=== PATIENT | female | born 1945 | race Caucasian/White ===

== ENCOUNTER 2017-05-04 09:25 | Emergency (ER) | payer MEDICARE ==
[~2017-05-04] VITALS: Ht 157.5 cm; Wt 57.0 kg
[~2017-05-04 09:25] MED LIST: ALEN10TA6 PO; ALPR1TAB5 PO; ALPR1TAB6 PO; CLOB15CR19 VG; CYCL1DRO EACHEYE; HYDR28.311 RC; METO25TA35 PO; OMEP-110 PO; OMEP10CA4 PO; OXYC-229 PO; OXYC1TAB9 PO; OXYC20TA42 PO; Oxygen NAS; PROM25TA10 PO; TRAZ50TA18 PO
[2017-05-04 09:29] VITALS: BP 143/76
[2017-05-04] MEDS ORDERED: maalox/diphenh/lido/sucralfate 5 ML PO PRN (10:30)
[2017-05-04] MEDS ORDERED: HYDR-3144 PO (11:24)
== END 2017-05-04 11:57 | disposition home or self-care (01) ==
LOC: ED 10:21
DX: J37.0 Chronic laryngitis (principal); K12.0 Recurrent oral aphthae; Z88.1 Allergy status to other antibiotic agents; Z88.8 Allergy status to other drugs, medicaments and biological substances
CPT/HCPCS: 70360; 71020; 99284; J7512

== ENCOUNTER → 2017-08-13 | Outpatient (CLI) | payer MEDICARE, OTHER ==
[~2017-08-13] MED LIST changes: +ALPR0.5T6 PO; +CIPR500T3 PO; +HYDR-3245 PO; +MAGN400T36 PO; +METH500T7 PO; -OXYC-229 PO; +OXYC-307 PO; +OXYC15TA PO; +TIZA4TAB9 PO; +VALA500T PO; +ZOLP10TA5 PO
[2017-08-13 10:19] LABS: BLOOD UREA NITROGEN 15 mg/dL (7-18); HEMATOCRIT 43.1 % (34.6-47.8); HEMOGLOBIN 14.9 g/dL (11.7-16.4); WHITE BLOOD COUNT 9.3 x10^3/uL (3.4-10)
== END | disposition home or self-care (01) ==
LOC: STAR 08:19
PROVIDERS: ATTEND Neurological Surgery
DX: Z01.818 Encounter for other preprocedural examination (principal); M41.84 Other forms of scoliosis, thoracic region; M51.16 Intervertebral disc disorders with radiculopathy, lumbar region; I70.0 Atherosclerosis of aorta; R79.1 Abnormal coagulation profile; Z85.9 Personal history of malignant neoplasm, unspecified
CPT/HCPCS: 36415; 71020; 80048; 85025; 85610; 85730; 93005

== ENCOUNTER 2017-08-17 11:48 | Inpatient (IN) | payer MEDICARE, OTHER ==
[2017-08-13 09:05] VITALS: BP 143/88
[~2017-08-17] VITALS: Ht 160 cm; Wt 60.8 kg
[~2017-08-17 11:48] MED LIST changes: +BACITRACIN 50,000 UNIT ONE; +BUPIVACAINE/PF 0.5% ONE; -MAGN400T36 PO; -METH500T7 PO; -OXYC15TA PO; +THROMBIN 5,000 UNIT VIAL TP ONE; -TIZA4TAB9 PO
[2017-08-17] MEDS ORDERED: LIDOCAINE 1%, 2ML ONE (12:32)
[2017-08-17] MEDS ORDERED: LACTATED RINGERS 1,000 ML IV SCH (12:57)
[2017-08-17] MEDS ORDERED: FENTANYL PF 100 MCG/2ML ONE ×2 (13:47→15:16)
[2017-08-17] MEDS ORDERED: HYDROmorphone 1 MG/ML, 1ML ONE (13:47)
[2017-08-17] MEDS ORDERED: ROCURONIUM 10 MG/ML ONE (13:57)
[2017-08-17] MEDS ORDERED: DEXAMETHASONE 4 MG/ML, 5ML ONE (13:57)
[2017-08-17] MEDS ORDERED: LIDOCAINE PF 2%, 5ML ONE (13:57)
[2017-08-17] MEDS ORDERED: NEOSTIGMINE 1 MG/ML, 10ML ONE (13:57)
[2017-08-17] MEDS ORDERED: ONDANSETRON 2MG/ML, 2ML ONE (13:57)
[2017-08-17] MEDS ORDERED: GLYCOPYRROLATE 0.2MG/1ML, 5ML ONE (13:57)
[2017-08-17] MEDS ORDERED: PROPOFOL 10 MG/ML, 20ML ONE (13:57)
[2017-08-17] MEDS ORDERED: SUCCINYLCHOLINE 20 MG/ML, 10ML ONE (13:57)
[2017-08-17] MEDS ORDERED: OXYcodone 5 MG/5 ML ORAL.SOL UDC PO PRN (14:30)
[2017-08-17] MEDS ORDERED: ACETAMINOPHEN 325 MG TABLET PO PRN (14:30)
[2017-08-17] MEDS ORDERED: hydrALAzine 20 MG/ML, 1ML IV PRN (14:30)
[2017-08-17] MEDS ORDERED: LABETALOL 5MG/ML, 20ML IV PRN (14:30)
[2017-08-17] MEDS ORDERED: ONDANSETRON 2MG/ML, 2ML IVPush PRN (14:30)
[2017-08-17] MEDS ORDERED: ACETAMINOPHEN 650 MG/20.3 ML UDC ONE (15:15)
[2017-08-17] MEDS ORDERED: OXYcodone 5 MG/5 ML ORAL.SOL UDC ONE (15:16)
[2017-08-17] MEDS: FENTANYL PF 100 MCG/2ML IV PRN ×2 (15:18→15:25)
[2017-08-17] MEDS ORDERED: HYDROmorphone 2 MG/ML, 1ML ONE (15:28)
[2017-08-17] MEDS: HYDROmorphone 1 MG/ML, 1ML IV PRN ×4 (15:30→16:00)
[2017-08-17] MEDS ORDERED: GLYCOPYRROLATE 0.4 MG/2 ML, 2ML ONE (15:57)
[2017-08-17] MEDS ORDERED: GLYCOPYRROLATE 0.2MG/1ML, 5ML IVPush ONE ×2 (16:00→16:30)
[2017-08-17 16:45] VITALS: BP 154/75
[2017-08-17] MEDS ORDERED: DIPHENHYDRAMINE 50 MG/ML, 1ML IVPush PRN (17:00)
[2017-08-17] MEDS ORDERED: ALPRazolam 1MG TABLET PO PRN (17:00)
[2017-08-17] MEDS ORDERED: PROMETHAZINE 25MG TABLET PO PRN (17:00)
[2017-08-17] MEDS ORDERED: OMEPRAZOLE 20 MG CAPSULE.DR PO PRN (17:00)
[2017-08-17] MEDS ORDERED: DIPHENHYDRAMINE 50 MG/ML, 1ML IM PRN (17:00)
[2017-08-17] MEDS ORDERED: BISACODYL 10 MG SUPP PR PRN (17:00)
[2017-08-17] MEDS ORDERED: PROMETHAZINE 25 MG/ML, 1ML IM PRN (17:00)
[2017-08-17] MEDS ORDERED: HYDROmorphone 2MG TABLET PO PRN (17:00)
[2017-08-17] MEDS ORDERED: MAGNESIUM HYDROXIDE 8%, 30ML UDC PO PRN (17:00)
[2017-08-17] MEDS ORDERED: HYDROCORTISONE CRM 0.025, 30GM RC PRN (17:00)
[2017-08-17] MEDS ORDERED: DIPHENHYDRAMINE 50 MG CAPSULE PO PRN (17:00)
[2017-08-17] MEDS ORDERED: HYDROmorphone 2 MG/ML, 1ML IM PRN (17:00)
[2017-08-17] MEDS ORDERED: OXYcodone/APAP 5/325MG TABLET PO PRN (17:30)
[2017-08-17] MEDS ORDERED: HYDROcodone/APAP 5/325 TABLET PO PRN (17:30)
[2017-08-17 19:48] VITALS: BP 146/60
[2017-08-17] MEDS: NS + 20MEQ KCL 1,000 ML IV SCH (20:12)
[2017-08-17] MEDS: RESTASIS HOMEOPHTH SCH (20:53)
[2017-08-17] MEDS: ZOLPIDEM 10MG TABLET PO SCH (22:20)
[2017-08-17] MEDS: CEFAZOLIN PMX 1GM/50ML 50 ML IVPB SCH (22:20)
[2017-08-18 00:07] VITALS: BP 121/66
[2017-08-18 03:34] VITALS: BP 124/69
[2017-08-18] MEDS: METOPROLOL TARTRATE 25 MG TABLET PO SCH (05:52)
[2017-08-18] MEDS ORDERED: METOPROLOL SUCCINATE 25 MG TAB.ER.24H PO SCH (06:00)
[2017-08-18] MEDS: CEFAZOLIN PMX 1GM/50ML 50 ML IVPB SCH (06:33)
[2017-08-18 06:45] VITALS: BP 128/72
[2017-08-18] MEDS: NS + 20MEQ KCL 1,000 ML IV SCH ×2 (08:30→21:00)
[2017-08-18] MEDS ORDERED: OXYC15TA PO (08:43)
[2017-08-18] MEDS ORDERED: DIAZEPAM INTENSOL 5 MG/ML PO PRN (09:00)
[2017-08-18] MEDS ORDERED: DIAZEPAM ELIXIR 1 MG/ML PO PRN (09:00)
[2017-08-18] MEDS: RESTASIS HOMEOPHTH SCH ×2 (09:00→21:00)
[2017-08-18] MEDS ORDERED: CYCLOBENZAPRINE 10 MG TABLET PO SCH (09:00)
[2017-08-18] MEDS: SENNA/DOCUSATE TABLET PO SCH (09:00)
[2017-08-18] MEDS: OXYcodone IR 5MG TABLET PO PRN ×2 (09:05→17:29)
[2017-08-18] MEDS: ONDANSETRON 2MG/ML, 2ML IV PRN ×2 (10:44→21:03)
[2017-08-18] MEDS: TIZANIDINE 4MG TABLET PO PRN ×2 (11:09→20:08)
[2017-08-18 13:38] VITALS: BP 96/51
[2017-08-18 19:30] VITALS: BP 110/65
[2017-08-18] MEDS: ZOLPIDEM 10MG TABLET PO SCH (21:03)
[2017-08-19] MEDS: OXYcodone IR 5MG TABLET PO PRN ×4 (00:23→16:37)
[2017-08-19 01:54] VITALS: BP 98/54
[2017-08-19] MEDS: TIZANIDINE 4MG TABLET PO PRN ×2 (04:18→14:33)
[2017-08-19] MEDS: METOPROLOL TARTRATE 25 MG TABLET PO SCH ×2 (06:00→06:15)
[2017-08-19 07:10] VITALS: BP 118/53
[2017-08-19] MEDS: SENNA/DOCUSATE TABLET PO SCH (07:23)
[2017-08-19] MEDS: RESTASIS HOMEOPHTH SCH (07:23)
[2017-08-19] MEDS: NS + 20MEQ KCL 1,000 ML IV SCH (07:24)
[2017-08-19] MEDS ORDERED: TIZA4TAB9 PO (08:20)
[2017-08-19 16:04] VITALS: BP 98/60
[2017-08-19 18:36] VITALS: BP 92/57
[2017-08-20] MEDS ORDERED: SENNA/DOCUSATE TABLET PO SCH (09:00)
== END 2017-08-19 19:35 | disposition home or self-care (01) | DRG 517 ==
LOC: OUT 11:48 → 4NOR 16:43 → ORIP 16:45 → OUT 17:10 → 4NOR 17:33
PROVIDERS: ADMIT Neurological Surgery; ATTEND Neurological Surgery
PROC: 01NB0ZZ Release Lumbar Nerve, Open Approach (ICD-10-PCS; principal; 2017-08-17 15:00)
DX: M51.16 Intervertebral disc disorders with radiculopathy, lumbar region (principal); M47.9 Spondylosis, unspecified; Z87.891 Personal history of nicotine dependence; Z88.8 Allergy status to other drugs, medicaments and biological substances
CPT/HCPCS: 72100; 76000; J0690; J1100; J1170; J2270; J2405; J2704; J2710; J3010; J3480; J3490; J0330

== ENCOUNTER 2017-08-22 18:50 | Inpatient (IN) | payer MEDICARE, OTHER ==
[~2017-08-22] VITALS: Ht 154.9 cm; Wt 63.9 kg
[~2017-08-22 18:50] MED LIST changes: -BACITRACIN 50,000 UNIT ONE; -BUPIVACAINE/PF 0.5% ONE; +OXYC15TA PO; -THROMBIN 5,000 UNIT VIAL TP ONE; +TIZA4TAB9 PO
[2017-08-22] MEDS ORDERED: SODIUM CHLORIDE 0.9% 1,000ML IVBOLUS ONE ×2 (20:00→22:30)
[2017-08-22] MEDS ORDERED: SODIUM CHLORIDE FLUSH 10ML SYR IVF ONE (20:00)
[2017-08-22 20:07] LABS: HEMATOCRIT 42.2 % (34.6-47.8); WHITE BLOOD COUNT 14.2 x10^3/uL (3.4-10)
[2017-08-22 20:16] LABS: BLOOD UREA NITROGEN 12 mg/dL (7-18)
[2017-08-22] MEDS ORDERED: CEFTRIAXONE PMX 1GM/50ML 50 ML IVPB ONE (20:30)
[2017-08-22] MEDS ORDERED: CEFTRIAXONE PMX 1GM/50ML 50 ML ONE (20:51)
[2017-08-22] MEDS ORDERED: ONDANSETRON 2MG/ML, 2ML ONE (21:39)
[2017-08-22] MEDS ORDERED: HYDROmorphone 1 MG/ML, 1ML IVPush PRN ×2 (22:00→23:00)
[2017-08-22] MEDS ORDERED: ONDANSETRON 2MG/ML, 2ML IVPush ONE (22:00)
[2017-08-22] MEDS ORDERED: MAGN400T36 PO (22:24)
[2017-08-22] MEDS ORDERED: METH500T7 PO (22:25)
[2017-08-22] MEDS ORDERED: SODIUM CHLORIDE FLUSH 10ML SYR IVF PRN (23:00)
[2017-08-22] MEDS ORDERED: GADOBUTROL 7.5 MMOL/7.5 ML PFS ONE (23:35)
[2017-08-23] MEDS ORDERED: TIZANIDINE 4MG TABLET PO PRN
[2017-08-23] MEDS ORDERED: HYDROCORTISONE CRM 0.025, 30GM RC PRN
[2017-08-23] MEDS ORDERED: OXYCODONE HCL 15 MG PO SCH
[2017-08-23] MEDS ORDERED: OMEPRAZOLE 20 MG CAPSULE.DR PO PRN
[2017-08-23] MEDS: SODIUM CHLORIDE 0.9% 1,000 ML IV SCH ×3 (00:04→23:13)
[2017-08-23] MEDS ORDERED: morphine SULFATE 10 MG/ML, 1ML IVPush PRN ×2 (00:30→22:30)
[2017-08-23] MEDS ORDERED: POLYETHYLENE GLYCOL 17 GM PACKET PO PRN (00:30)
[2017-08-23] MEDS ORDERED: BISACODYL 10 MG SUPP PR PRN (00:30)
[2017-08-23] MEDS ORDERED: ACETAMINOPHEN 325 MG TABLET PO PRN (00:30)
[2017-08-23] MEDS ORDERED: VANCOMYCIN PER PHARMACY MC PRN (00:30)
[2017-08-23] MEDS ORDERED: PHARMACOKINETIC CONSULTATION MC ONE (00:37)
[2017-08-23] MEDS ORDERED: PHARMACOKINETIC MONITORING MC PRN (01:00)
[2017-08-23] MEDS: MAGNESIUM OXIDE 400 MG TABLET PO SCH ×3 (01:56→20:33)
[2017-08-23] MEDS: METHOCARBAMOL 500 MG TABLET PO SCH ×4 (01:56→20:32)
[2017-08-23] MEDS: PIPERACILLIN/TAZO/PMX 3.375GM 50 ML IV SCH ×4 (01:57→20:33)
[2017-08-23 02:28] VITALS: BP 145/69
[2017-08-23] MEDS ORDERED: MAALOX/HYOSCYAMINE/LIDOCAINE 45 ML BTL PO ONE (02:30)
[2017-08-23] MEDS: VANCOMYCIN PMX 1GM/200ML 200 ML IVPB SCH (02:45)
[2017-08-23] MEDS: OXYcodone IR 5MG TABLET PO PRN ×3 (07:35→17:02)
[2017-08-23 07:42] LABS: HEMATOCRIT 34.6 % (34.6-47.8); HEMOGLOBIN 12.1 g/dL (11.7-16.4)
[2017-08-23 07:45] VITALS: BP 120/66
[2017-08-23 07:51] LABS: BLOOD UREA NITROGEN 7 mg/dL (7-18)
[2017-08-23 07:54] LABS: ASPARTATE AMINO TRANSFERASE 13 U/L (15-37)
[2017-08-23] MEDS: TEMPLATE NON-FORMULARY MED. (Cyclosporine (Restasis) 1 DROP) EACHEYE SCH ×3 (09:00→20:32)
[2017-08-23] MEDS: SENNA/DOCUSATE TABLET PO SCH (09:00)
[2017-08-23] MEDS: METOPROLOL TARTRATE 25 MG TABLET PO SCH (09:27)
[2017-08-23 13:43] VITALS: BP 131/65
[2017-08-23] MEDS: ONDANSETRON 2MG/ML, 2ML IVPush PRN (14:40)
[2017-08-23 20:00] VITALS: BP 135/66
[2017-08-23] MEDS ORDERED: ZOLPIDEM 5MG TABLET ONE (20:10)
[2017-08-23] MEDS: ZOLPIDEM 10MG TABLET PO SCH ×2 (20:23)
[2017-08-24] MEDS: OXYcodone IR 5MG TABLET PO PRN ×4 (01:32→17:31)
[2017-08-24 02:00] VITALS: BP 138/59
[2017-08-24] MEDS: PIPERACILLIN/TAZO/PMX 3.375GM 50 ML IV SCH ×2 (02:07→08:05)
[2017-08-24] MEDS: VANCOMYCIN PMX 1GM/200ML 200 ML IVPB SCH (03:23)
[2017-08-24 05:35] LABS: HEMATOCRIT 28.5 % (34.6-47.8); WHITE BLOOD COUNT 7.2 x10^3/uL (3.4-10)
[2017-08-24 05:42] LABS: BLOOD UREA NITROGEN 7 mg/dL (7-18)
[2017-08-24] MEDS ORDERED: POTASSIUM CHLORIDE 20 MEQ TAB.ER.PRT PO ONE (07:00)
[2017-08-24 07:53] VITALS: BP 125/64
[2017-08-24] MEDS: TEMPLATE NON-FORMULARY MED. (Cyclosporine (Restasis) 1 DROP) EACHEYE SCH ×2 (08:05→20:38)
[2017-08-24] MEDS: METOPROLOL TARTRATE 25 MG TABLET PO SCH (08:05)
[2017-08-24] MEDS: MAGNESIUM OXIDE 400 MG TABLET PO SCH ×2 (08:05→20:35)
[2017-08-24] MEDS: SENNA/DOCUSATE TABLET PO SCH (08:06)
[2017-08-24] MEDS: METHOCARBAMOL 500 MG TABLET PO SCH ×2 (08:06→20:35)
[2017-08-24] MEDS: SODIUM CHLORIDE 0.9% 1,000 ML IV SCH ×2 (08:08→20:37)
[2017-08-24] MEDS: DOXYCYCLINE 100MG TABLET PO SCH ×2 (12:48→20:35)
[2017-08-24 13:10] VITALS: BP 137/78
[2017-08-24] MEDS: CEFTRIAXONE PMX 1GM/50ML 50 ML IV SCH ×2 (14:37→23:53)
[2017-08-24 20:00] VITALS: BP 145/67
[2017-08-24] MEDS ORDERED: ZOLPIDEM 5MG TABLET ONE (20:18)
[2017-08-24] MEDS: ZOLPIDEM 10MG TABLET PO SCH (20:35)
[2017-08-25 02:00] VITALS: BP 148/73
[2017-08-25] MEDS: OXYcodone IR 5MG TABLET PO PRN ×4 (03:42→18:45)
[2017-08-25 04:40] LABS: HEMATOCRIT 29.5 % (34.6-47.8); HEMOGLOBIN 10.3 g/dL (11.7-16.4); WHITE BLOOD COUNT 6.5 x10^3/uL (3.4-10)
[2017-08-25 04:44] LABS: BLOOD UREA NITROGEN 3 mg/dL (7-18)
[2017-08-25] MEDS: SODIUM CHLORIDE 0.9% 1,000 ML IV SCH (06:15)
[2017-08-25] MEDS ORDERED: POTASSIUM CHLORIDE 20 MEQ TAB.ER.PRT PO ONE (07:00)
[2017-08-25 07:30] VITALS: BP 149/76
[2017-08-25] MEDS: ONDANSETRON 2MG/ML, 2ML IVPush PRN (08:58)
[2017-08-25] MEDS: METOPROLOL TARTRATE 25 MG TABLET PO SCH (09:40)
[2017-08-25] MEDS: MAGNESIUM OXIDE 400 MG TABLET PO SCH ×2 (09:40→20:30)
[2017-08-25] MEDS: METHOCARBAMOL 500 MG TABLET PO SCH ×4 (09:40→20:34)
[2017-08-25] MEDS: DOXYCYCLINE 100MG TABLET PO SCH ×2 (09:41→20:30)
[2017-08-25] MEDS: SENNA/DOCUSATE TABLET PO SCH (09:41)
[2017-08-25] MEDS: TEMPLATE NON-FORMULARY MED. (Cyclosporine (Restasis) 1 DROP) EACHEYE SCH ×2 (09:41→20:30)
[2017-08-25 13:00] VITALS: BP 119/66
[2017-08-25] MEDS: CEFTRIAXONE PMX 1GM/50ML 50 ML IV SCH ×2 (13:32→23:34)
[2017-08-25] MEDS: POTASSIUM CHLORIDE 20 MEQ TAB.ER.PRT PO SCH (17:00)
[2017-08-25 20:00] VITALS: BP 130/72
[2017-08-25] MEDS ORDERED: ZOLPIDEM 5MG TABLET ONE (20:26)
[2017-08-25] MEDS: ZOLPIDEM 10MG TABLET PO SCH (20:30)
[2017-08-26] MEDS: OXYcodone IR 5MG TABLET PO PRN ×4 (01:08→14:13)
[2017-08-26 01:09] VITALS: BP 150/69
[2017-08-26 06:20] LABS: BLOOD UREA NITROGEN 4 mg/dL (7-18)
[2017-08-26 08:16] VITALS: BP 164/81
[2017-08-26] MEDS: TEMPLATE NON-FORMULARY MED. (Cyclosporine (Restasis) 1 DROP) EACHEYE SCH (09:00)
[2017-08-26] MEDS: SENNA/DOCUSATE TABLET PO SCH ×2 (09:00→09:41)
[2017-08-26] MEDS: METHOCARBAMOL 500 MG TABLET PO SCH (09:41)
[2017-08-26] MEDS: DOXYCYCLINE 100MG TABLET PO SCH (09:41)
[2017-08-26] MEDS: MAGNESIUM OXIDE 400 MG TABLET PO SCH (09:41)
[2017-08-26] MEDS: METOPROLOL TARTRATE 25 MG TABLET PO SCH (09:42)
[2017-08-26] MEDS: CEFTRIAXONE PMX 1GM/50ML 50 ML IV SCH (11:58)
[2017-08-26 14:45] VITALS: BP 149/73
[2017-08-26] MEDS ORDERED: DOXY100T PO (15:17)
[2017-08-26] MEDS ORDERED: CEFD300C37 PO (15:17)
[2017-08-26] MEDS: POTASSIUM CHLORIDE 20 MEQ TAB.ER.PRT PO SCH (17:09)
== END 2017-08-26 18:15 | disposition home or self-care (01) | DRG 871 ==
LOC: ED 19:43 → EDIP 22:47 → 4EST 08-23 00:28
PROVIDERS: ADMIT Internal Medicine; ATTEND Internal Medicine
DX: A41.9 Sepsis, unspecified organism (principal); J18.9 Pneumonia, unspecified organism; D64.9 Anemia, unspecified; D75.89 Other specified diseases of blood and blood-forming organs; E44.1 Mild protein-calorie malnutrition; M54.5 Low back pain; I10 Essential (primary) hypertension; M54.2 Cervicalgia; R51 Headache; E87.6 Hypokalemia; F41.9 Anxiety disorder, unspecified; G89.29 Other chronic pain; K21.9 Gastro-esophageal reflux disease without esophagitis; K59.00 Constipation, unspecified; M79.7 Fibromyalgia; H04.123 Dry eye syndrome of bilateral lacrimal glands; Z96.643 Presence of artificial hip joint, bilateral; Z86.73 Personal history of transient ischemic attack (TIA), and cerebral infarction without residual deficits; I25.2 Old myocardial infarction; Z90.710 Acquired absence of both cervix and uterus; Z68.26 Body mass index [BMI] 26.0-26.9, adult; Z88.1 Allergy status to other antibiotic agents; Z88.8 Allergy status to other drugs, medicaments and biological substances; Z87.891 Personal history of nicotine dependence
CPT/HCPCS: 36415; 71010; 72158; 74022; 80048; 80053; 81003; 82040; 82607; 82746; 83605; 84145; 84439; 84443; 85025; 87040; 87070; 87205; 87324; 96361; 96365; 96366; 96375; A9585; J0696; J2405; J2543; J3370; J2270; J7030

== ENCOUNTER 2017-09-16 18:05 | Emergency (ER) | payer MEDICARE, OTHER ==
[~2017-09-16] VITALS: Ht 160 cm; Wt 58.9 kg
[~2017-09-16 18:05] MED LIST changes: +CEFD300C37 PO; +DOXY100T PO; +MAGN400T36 PO; +METH500T7 PO
[2017-09-16] MEDS ORDERED: SODIUM CHLORIDE 0.9% 1,000 ML IV ONE (18:18)
[2017-09-16] MEDS ORDERED: SODIUM CHLORIDE 0.9% 1,000ML IVBOLUS ONE (18:30)
[2017-09-16 18:52] LABS: HEMATOCRIT 38.5 % (34.6-47.8); HEMOGLOBIN 13.3 g/dL (11.7-16.4); WHITE BLOOD COUNT 14.1 x10^3/uL (3.4-10)
[2017-09-16 18:53] LABS: BLOOD UREA NITROGEN 11 mg/dL (7-18)
[2017-09-16] MEDS ORDERED: HYDROmorphone 1 MG/ML, 1ML IM ONE (19:00)
[2017-09-16 19:17] LABS: ANISOCYTOSIS 1+
[2017-09-16] MEDS ORDERED: HYDROmorphone 1 MG/ML, 1ML ONE (19:28)
[2017-09-16 19:32] LABS: PATH.CAST-FLAG NOT PRESENT; SPERM-FLAG NOT PRESENT; SRC-FLAG NOT PRESENT; XTAL-FLAG NOT PRESENT; YLC-FLAG NOT PRESENT
[2017-09-16] MEDS ORDERED: HYDROmorphone 1 MG/ML, 1ML IV ONE (20:00)
[2017-09-16 20:56] VITALS: BP 142/64
== END 2017-09-16 21:02 | disposition home or self-care (01) ==
LOC: ED 20:30
DX: M54.5 Low back pain (principal); Z88.1 Allergy status to other antibiotic agents; Z88.8 Allergy status to other drugs, medicaments and biological substances
CPT/HCPCS: 36415; 71010; 72110; 80048; 81001; 82040; 85025; 87086; 96361; 96374; 99285; J1170; J7030; 87077

== ENCOUNTER 2018-03-10 19:08 | Emergency (ER) | payer MEDICARE, OTHER ==
[~2018-03-10] VITALS: Ht 160 cm; Wt 55.3 kg
[2018-03-10 20:00] LABS: BASOPHILS # (AUTO) 0.02 x10^3/uL (0-0.1); BASOPHILS % (AUTO) 0 % (0-1); EOSINOPHILS # (AUTO) 0.09 x10^3/uL (0-0.4); EOSINOPHILS % (AUTO) 1 % (1-7); LYMPHOCYTES # (AUTO) 1.98 x10^3/uL (1-3.4); LYMPHOCYTES % (AUTO) 20 % (22-44); MD NO; MEAN CORPUSCULAR HEMOGLOBIN 37.7 pg (27.0-34.8); MEAN CORPUSCULAR HGB CONC 34.8 g/dL (32.4-35.8); MEAN CORPUSCULAR VOLUME 108.4 fL (80-100); MEAN PLATELET VOLUME 9.3 fL (7.4-10.4); MONOCYTES # (AUTO) 0.88 x10^3/uL (0.2-0.8); MONOCYTES % (AUTO) 9 % (2-9); NEUTROPHILS # (AUTO) 6.96 x10^3/uL (1.8-6.8); NEUTROPHILS % (AUTO) 70 % (42-75); PLATELET COUNT 258 x10^3/uL (130-400); RED BLOOD COUNT 3.83 x10^6/uL (3.82-5.3); RED CELL DISTRIBUTION WIDTH 13.5 % (9.6-15.2)
[2018-03-10] MEDS ORDERED: MAALOX/HYOSCYAMINE/LIDOCAINE 45 ML BTL PO ONE (20:00)
[2018-03-10 20:09] LABS: ALANINE AMINOTRANSFERASE 25 U/L (12-78); ANION GAP 8 mmol/L (5-15); CALCIUM 9.3 mg/dL (8.5-10.1); CHLORIDE 110 mmol/L (98-107); CREATININE 0.81 mg/dL (0.55-1.02)
[2018-03-10 20:11] LABS: ALKALINE PHOSPHATASE 107 U/L (45-117); BILIRUBIN,TOTAL 0.8 mg/dL (0.2-1.0); TOTAL PROTEIN 7.2 g/dL (6.4-8.2)
[2018-03-10] MEDS ORDERED: MAALOX/HYOSCYAMINE/LIDOCAINE 45 ML BTL ONE (20:14)
[2018-03-10 20:21] LABS: TROPONIN I < 0.015 ng/mL (0.000-0.045)
[2018-03-10] MEDS ORDERED: ONDANSETRON ODT 4 MG PO ONE (20:30)
[2018-03-10] MEDS ORDERED: ONDANSETRON ODT 4 MG ONE (20:36)
[2018-03-10 21:08] LABS: MICROSCOPIC AUTO
[2018-03-10 21:17] LABS: CULTURE INDICATED? YES
[2018-03-10 21:46] VITALS: BP 160/72
== END 2018-03-10 21:50 | disposition home or self-care (01) ==
LOC: ED 21:44
DX: K29.00 Acute gastritis without bleeding (principal); I10 Essential (primary) hypertension; Z86.73 Personal history of transient ischemic attack (TIA), and cerebral infarction without residual deficits
CPT/HCPCS: 36415; 74021; 76700; 80053; 81001; 83690; 84484; 85025; 87086; 93005; 99285; Q0162

== ENCOUNTER 2019-04-03 12:18 | Inpatient (IN) | payer MEDICARE, OTHER ==
[~2019-04-03] VITALS: Ht 160 cm; Wt 61.8 kg
[~2019-04-03 12:18] MED LIST changes: +OXYC-432 PO; -OXYC1TAB9 PO; -TRAZ50TA18 PO; +TRAZ50TA66 PO
[2019-04-03 14:40] LABS: BASOPHILS # (AUTO) 0.02 x10^3/uL (0-0.1); BASOPHILS % (AUTO) 0 % (0-1); EOSINOPHILS % (AUTO) 0 % (1-7); LYMPHOCYTES # (AUTO) 1.21 x10^3/uL (1-3.4); LYMPHOCYTES % (AUTO) 13 % (22-44); MD NO; MEAN CORPUSCULAR HEMOGLOBIN 36.2 pg (27.0-34.8); MEAN CORPUSCULAR HGB CONC 33.4 g/dL (32.4-35.8); MEAN CORPUSCULAR VOLUME 108.6 fL (80-100); MEAN PLATELET VOLUME 9.2 fL (7.4-10.4); MONOCYTES # (AUTO) 0.55 x10^3/uL (0.2-0.8); MONOCYTES % (AUTO) 6 % (2-9); NEUTROPHILS # (AUTO) 7.58 x10^3/uL (1.8-6.8); NEUTROPHILS % (AUTO) 81 % (42-75); PLATELET COUNT 227 x10^3/uL (130-400); RED CELL DISTRIBUTION WIDTH 11.8 % (9.6-15.2)
[2019-04-03 14:51] LABS: ALANINE AMINOTRANSFERASE 28 U/L (12-78); ALBUMIN 3.8 g/dL (3.4-5.0); ANION GAP 10 mmol/L (5-15); CALCIUM 9.1 mg/dL (8.5-10.1); CHLORIDE 107 mmol/L (98-107); CREATININE 0.93 mg/dL (0.55-1.02)
[2019-04-03 14:55] LABS: ALKALINE PHOSPHATASE 93 U/L (45-117); BILIRUBIN,TOTAL 0.4 mg/dL (0.2-1.0); TROPONIN I 0.021 ng/mL (0.000-0.045)
[2019-04-03] MEDS ORDERED: ONDANSETRON 2MG/ML, 2ML ONE (15:14)
[2019-04-03] MEDS ORDERED: MORPHINE SULFATE 4 MG/ML, 1ML ONE (15:14)
--- NOTE | 2019-04-03 15:22 | NUR ---
PT MEDICATED PER ORDER.
[2019-04-03] MEDS ORDERED: ONDANSETRON 2MG/ML, 2ML IVPush ONE (15:30)
[2019-04-03] MEDS ORDERED: morphine SULFATE 10 MG/ML, 1ML IVPush ONE (15:30)
[2019-04-03] MEDS ORDERED: TRAZ-137 PO (15:34)
[2019-04-03] MEDS ORDERED: OXYC-307 PO (15:34)
--- NOTE | 2019-04-03 15:59 | NUR ---
pt resting in bed. pt medicated per order. unable to complete med rec at this time due to pt inability to recall meds. pt ambulated to restroom using cane and is steady on her feet. pt to be admitted to hospital and agrees with plan of care. pt axox4 and a little anxious about being in hospital. cardiac, nibp and o2 monitoring in place. pt has no wants or needs at this time. pt stated pain has subsided to tolerable 2/10 with meds.
[2019-04-03] MEDS ORDERED: LABETALOL 5 MG/ML SYRINGE IVPush PRN (16:30)
[2019-04-03] MEDS ORDERED: hydrALAzine 20 MG/ML, 1ML IVPush PRN (16:30)
[2019-04-03] MEDS ORDERED: CYCLOBENZAPRINE 10 MG TABLET PO PRN (16:30)
[2019-04-03] MEDS ORDERED: ACETAMINOPHEN 325 MG TABLET PO PRN (16:30)
[2019-04-03] MEDS ORDERED: morphine SULFATE 10 MG/ML, 1ML IVPush PRN (16:30)
[2019-04-03] MEDS ORDERED: ONDANSETRON 2MG/ML, 2ML IVPush PRN (16:30)
[2019-04-03] MEDS ORDERED: OMEPRAZOLE 20 MG CAPSULE.DR PO PRN (16:30)
[2019-04-03] MEDS ORDERED: VALACYCLOVIR 500MG TABLET PO PRN (16:30)
--- NOTE | 2019-04-03 16:34 | NUR ---
LUNCH RN: LAB AT BEDSIDE FOR COLLECTION. NADN, ALL NEEDS MET AT THIS TIME.
[2019-04-03 17:05] LABS: TROPONIN I 0.018 ng/mL (0.000-0.045)
[2019-04-03 18:03] VITALS: BP 159/83
[2019-04-03 18:05] VITALS: BP 165/97
[2019-04-03 18:12] VITALS: BP 160/88
[2019-04-03] MEDS: ENOXAPARIN 40 MG/0.4 ML SQ SCH (18:29)
[2019-04-03] MEDS: HYDROcodone/APAP 5/325 TABLET PO PRN (18:29)
[2019-04-03 19:48] VITALS: BP 147/75
[2019-04-03] MEDS ORDERED: POTA20PA31 PO (20:14)
[2019-04-03] MEDS ORDERED: FURO20TA3 PO (20:14)
[2019-04-03] MEDS ORDERED: PROM25TA10 PO (20:14)
[2019-04-03] MEDS ORDERED: PROP10TA51 PO (20:14)
[2019-04-03] MEDS: TRAZODONE 100MG TABLET PO SCH (21:15)
[2019-04-03] MEDS: ATORVASTATIN 40 MG TABLET PO SCH (21:15)
[2019-04-03 22:20] LABS: TROPONIN I < 0.015 ng/mL (0.000-0.045)
[2019-04-04] MEDS: HYDROcodone/APAP 5/325 TABLET PO PRN ×2 (01:34→03:48)
[2019-04-04 01:35] VITALS: BP 162/79
[2019-04-04 05:30] LABS: ALBUMIN 3.4 g/dL (3.4-5.0); ANION GAP 9 mmol/L (5-15); CHLORIDE 107 mmol/L (98-107)
[2019-04-04 05:36] LABS: ALANINE AMINOTRANSFERASE 26 U/L (12-78); ALKALINE PHOSPHATASE 94 U/L (45-117); BILIRUBIN,TOTAL 0.5 mg/dL (0.2-1.0); CREATININE 0.89 mg/dL (0.55-1.02); TOTAL PROTEIN 6.7 g/dL (6.4-8.2); TROPONIN I < 0.015 ng/mL (0.000-0.045)
[2019-04-04 06:35] VITALS: BP 157/82
[2019-04-04 06:51] VITALS: BP 103/72
[2019-04-04 07:14] LABS: BASOPHILS # (AUTO) 0.01 x10^3/uL (0-0.1); BASOPHILS % (AUTO) 0 % (0-1); EOSINOPHILS # (AUTO) 0.04 x10^3/uL (0-0.4); EOSINOPHILS % (AUTO) 0 % (1-7); LYMPHOCYTES # (AUTO) 1.38 x10^3/uL (1-3.4); LYMPHOCYTES % (AUTO) 13 % (22-44); MD NO; MEAN CORPUSCULAR HEMOGLOBIN 35.9 pg (27.0-34.8); MEAN CORPUSCULAR VOLUME 108.7 fL (80-100); MEAN PLATELET VOLUME 9.1 fL (7.4-10.4); MONOCYTES # (AUTO) 0.92 x10^3/uL (0.2-0.8); MONOCYTES % (AUTO) 9 % (2-9); NEUTROPHILS # (AUTO) 7.99 x10^3/uL (1.8-6.8); NEUTROPHILS % (AUTO) 77 % (42-75); PLATELET COUNT 220 x10^3/uL (130-400); RED BLOOD COUNT 4.25 x10^6/uL (3.82-5.3); RED CELL DISTRIBUTION WIDTH 12.1 % (9.6-15.2)
[2019-04-04] MEDS ORDERED: PROPRANOLOL 20 MG TABLET ONE ×2 (08:12→16:15)
[2019-04-04] MEDS: PROPRANOLOL 10 MG TABLET PO SCH ×3 (08:23→21:00)
[2019-04-04] MEDS: ASPIRIN 81 MG TABLET CHEW PO SCH (08:24)
[2019-04-04] MEDS: FUROSEMIDE 20 MG TABLET PO SCH (08:24)
[2019-04-04] MEDS ORDERED: OXYcodone/APAP 10/325MG TABLET PO PRN (10:30)
[2019-04-04] MEDS: METHOCARBAMOL 500 MG TABLET PO SCH ×2 (11:00→21:00)
[2019-04-04 13:15] VITALS: BP 147/82
[2019-04-04] MEDS ORDERED: OMNIPAQUE 350 MG/ML, 100ML BOTTLE ONE (16:58)
[2019-04-04 18:34] VITALS: BP 123/82
[2019-04-04] MEDS: ENOXAPARIN 40 MG/0.4 ML SQ SCH (19:56)
[2019-04-04] MEDS: TRAZODONE 100MG TABLET PO SCH (20:59)
[2019-04-04] MEDS: ATORVASTATIN 40 MG TABLET PO SCH (21:00)
[2019-04-05 02:24] VITALS: BP 136/78
[2019-04-05 05:20] LABS: BASOPHILS # (AUTO) 0.03 x10^3/uL (0-0.1); BASOPHILS % (AUTO) 0 % (0-1); EOSINOPHILS # (AUTO) 0.01 x10^3/uL (0-0.4); EOSINOPHILS % (AUTO) 0 % (1-7); LYMPHOCYTES # (AUTO) 1.19 x10^3/uL (1-3.4); LYMPHOCYTES % (AUTO) 11 % (22-44); MD NO; MEAN CORPUSCULAR HEMOGLOBIN 36.6 pg (27.0-34.8); MEAN CORPUSCULAR HGB CONC 33.9 g/dL (32.4-35.8); MEAN CORPUSCULAR VOLUME 108.1 fL (80-100); MEAN PLATELET VOLUME 9.6 fL (7.4-10.4); MONOCYTES # (AUTO) 0.83 x10^3/uL (0.2-0.8); MONOCYTES % (AUTO) 8 % (2-9); NEUTROPHILS # (AUTO) 8.46 x10^3/uL (1.8-6.8); NEUTROPHILS % (AUTO) 80 % (42-75); PLATELET COUNT 210 x10^3/uL (130-400); RED BLOOD COUNT 4.17 x10^6/uL (3.82-5.3); RED CELL DISTRIBUTION WIDTH 11.9 % (9.6-15.2)
[2019-04-05 06:38] VITALS: BP 151/87
[2019-04-05] MEDS: ASPIRIN 81 MG TABLET CHEW PO SCH (08:52)
[2019-04-05] MEDS: PROPRANOLOL 10 MG TABLET PO SCH (08:52)
[2019-04-05] MEDS: FUROSEMIDE 20 MG TABLET PO SCH (08:52)
[2019-04-05] MEDS: METHOCARBAMOL 500 MG TABLET PO SCH (08:52)
[2019-04-05] MEDS ORDERED: PROPRANOLOL 10 MG TABLET PO ONE (09:30)
[2019-04-05 14:18] VITALS: BP 125/73
[2019-04-05] MEDS ORDERED: PROPRANOLOL 20 MG TABLET PO SCH (21:00)
== END 2019-04-05 16:55 | disposition home or self-care (01) | DRG 312 ==
LOC: ED 13:45 → EDIP 16:13 → 5SO 17:43 → DCLOUNGE 04-05 16:45
PROVIDERS: ADMIT Hospitalist; ATTEND Hospitalist
DX: R55 Syncope and collapse (principal); J81.1 Chronic pulmonary edema; I10 Essential (primary) hypertension; E86.0 Dehydration; D72.829 Elevated white blood cell count, unspecified; D75.89 Other specified diseases of blood and blood-forming organs; K21.9 Gastro-esophageal reflux disease without esophagitis; M16.12 Unilateral primary osteoarthritis, left hip; M46.90 Unspecified inflammatory spondylopathy, site unspecified; Z96.641 Presence of right artificial hip joint; S30.0XXA Contusion of lower back and pelvis, initial encounter; W18.39XA Other fall on same level, initial encounter; M54.9 Dorsalgia, unspecified; M25.552 Pain in left hip; M25.551 Pain in right hip; R07.89 Other chest pain; R00.2 Palpitations; Y93.89 Activity, other specified; Z87.74 Personal history of (corrected) congenital malformations of heart and circulatory system; Z86.73 Personal history of transient ischemic attack (TIA), and cerebral infarction without residual deficits; Z87.891 Personal history of nicotine dependence; Z88.1 Allergy status to other antibiotic agents; Z88.8 Allergy status to other drugs, medicaments and biological substances; Y92.89 Other specified places as the place of occurrence of the external cause; Y99.8 Other external cause status; F41.9 Anxiety disorder, unspecified
CPT/HCPCS: 36415; 71045; 72158; 72193; 80053; 83735; 83880; 84443; 84484; 85025; 93005; 93306; 93880; 96374; 96375; G0378; J1650; J2405; Q9967; J2270; Q0177

== ENCOUNTER 2021-04-09 14:27 | Emergency (ER) | payer MEDICARE, OTHER ==
[~2021-04-09] VITALS: Ht 160 cm; Wt 61.0 kg
[~2021-04-09 14:27] MED LIST changes: +ALEN10TA10 PO; -ALEN10TA6 PO; +ALPR-585 PO; -ALPR0.5T6 PO; +ALPR0.5T93 PO; -ALPR1TAB6 PO; -CIPR500T3 PO; +CIPR500T4 PO; +FURO20TA3 PO; -HYDR-3245 PO; +HYDR1TAB53 PO; +METH-639 PO; -METH500T7 PO; -OMEP10CA4 PO; +OMEP10CA5 PO; -OXYC-307 PO; +OXYC-380 PO; -OXYC-432 PO; -OXYC15TA PO; +OXYC15TA3 PO; +OXYC1TAB18 PO; +POTA20PA31 PO; +PROP10TA51 PO; +TRAZ-175 PO; -VALA500T PO; +VALA500T8 PO
[2021-04-09 15:53] LABS: BASOPHILS % (AUTO) 1 % (0-1); EOSINOPHILS % (AUTO) 5 % (1-7); LYMPHOCYTES % (AUTO) 21 % (22-44); MEAN CORPUSCULAR HEMOGLOBIN 37.7 pg (27.0-34.8); MEAN CORPUSCULAR HGB CONC 34.8 g/dL (32.4-35.8); MEAN PLATELET VOLUME 9.4 fL (7.4-10.4); MONOCYTES % (AUTO) 10 % (2-9); NEUTROPHILS % (AUTO) 64 % (42-75); PLATELET COUNT 187 x10^3/uL (130-400); RED BLOOD COUNT 3.55 x10^6/uL (3.82-5.3); RED CELL DISTRIBUTION WIDTH 14.3 % (9.6-15.2)
[2021-04-09 15:56] LABS: MD NO
[2021-04-09 16:07] LABS: ALANINE AMINOTRANSFERASE 19 U/L (12-78); ALBUMIN 3.9 g/dL (3.4-5.0); ANION GAP 7 mmol/L (5-15); CALCIUM 8.9 mg/dL (8.5-10.1); CHLORIDE 105 mmol/L (98-107); CREATININE 0.95 mg/dL (0.55-1.02)
[2021-04-09 16:11] LABS: ALKALINE PHOSPHATASE 114 U/L (45-117); BILIRUBIN,TOTAL 0.4 mg/dL (0.2-1.0); TOTAL PROTEIN 7.1 g/dL (6.4-8.2); TROPONIN I 0.016 ng/mL (0.000-0.045)
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
--- NOTE | 2021-04-09 16:53 | NUR ---
ERP AT NOW.
--- NOTE | 2021-04-09 17:30 | NUR ---
PT AMBULATED TO BR WITHOUT DIFFICULTY. TO CT VIA GURNEY.
[2021-04-09 18:11] VITALS: BP 142/70
--- NOTE | 2021-04-09 18:15 | NUR ---
PT STILL C/O HEADACHE & DIZZINESS. RV'WD POC WITH PT. ALL RESULTS BACK, CHART UP FOR RECHECK. AT BS.
--- NOTE | 2021-04-09 19:55 | NUR ---
ERP IN FOR RECHECK.
--- NOTE | 2021-04-09 19:58 | NUR ---
D/C INSTRUCTIONS & F/U APPT RV'WD WITH PT, SHE VERBALIZES UNDERSTANDING. AMBULATED OUT OF ED WITH WITHOUT DIFFICULTY.
== END 2021-04-09 19:59 | disposition home or self-care (01) ==
LOC: ED 17:15
DX: S09.90XA Unspecified injury of head, initial encounter (principal); R07.89 Other chest pain; I10 Essential (primary) hypertension; Z86.73 Personal history of transient ischemic attack (TIA), and cerebral infarction without residual deficits; Z87.891 Personal history of nicotine dependence; W18.30XA Fall on same level, unspecified, initial encounter; Y93.89 Activity, other specified; Y92.89 Other specified places as the place of occurrence of the external cause; Y99.8 Other external cause status
CPT/HCPCS: 36415; 70450; 71045; 80053; 84484; 85025; 93005; 99285